=== PATIENT | female | born 1955 | race Caucasian/White ===

== ENCOUNTER 2017-12-26 10:32 | Observation (INO) | payer BC ==
[~2017-12-26] VITALS: Ht 162.6 cm; Wt 87.5 kg
[~2017-12-26 10:32] MED LIST: ACETAMINOPHEN500 MG PO; CIPRO250 MG PO; CIPRO500 MG PO; FLUTICASONE PRO16 GM BOTH NARES; OMEPRAZOLE20 M2 PO; PROMETHAZINE HC25 M1 PO
[2017-12-26] MEDS ORDERED: ZANAFLEX2 MG PO (11:08)
[2017-12-26 11:10] LABS: HEMATOCRIT 35.3 % (36.0-46.0); MCH 32.8 PG (29.0-34.0); MCV 96.4 FL (83-99); PLATELET COUNT 316 K/uL (156-360); RBC DIS.WIDTH-SD 46.3 % (39-53); RED BLOOD COUNT 3.66 M/uL (3.80-5.20); WHITE BLOOD COUNT 6.7 K/uL (4.1-10.2)
[2017-12-26 11:19] LABS: CHLORIDE 105 mEq/L (99-109); POTASSIUM 3.8 mEq/L (3.7-5.4); SODIUM 139 mEq/L (136-147)
[2017-12-26 11:21] LABS: GLUCOSE 139 mg/dL (70-99)
[2017-12-26 11:25] LABS: CREATININE 0.7 mg/dL (0.6-1.3); GFR ESTIMATE (CALCULATED) > 59 mL/min/
[2017-12-26 11:26] LABS: UREA NITROGEN (BUN) 7 mg/dL (9-23)
[2017-12-26 11:32] LABS: TROP-I INTERPRETATION NEGATIVE; TROPONIN-I < 0.01 ng/mL (0.0-0.30)
[2017-12-26 12:15] LABS: APPEARANCE SL.HAZY ((CLEAR)); BILIRUBIN NEGATIVE; BLOOD NEGATIVE; COLOR YELLOW ((YELLOW)); GLUCOSE (STRIP) NEGATIVE; KETONES NEGATIVE; LEUKOCYTES MODERATE; NITRITE NEGATIVE; PROTEIN (STRIP) NEGATIVE; SPECIFIC GRAVITY 1.011 (1.000-1.030); UROBILINOGEN 0.2 MG/DL (0.2-1.0)
[2017-12-26 12:42] LABS: BACTERIA RARE /HPF; EPITHELIAL CELLS 1+ /HPF; HYALINE CASTS 0-5 /LPF; MUCUS TRACE /LPF; RED BLOOD CELLS 0-5 /HPF (0-5); UCUL ADDED? NO; WHITE BLOOD CELLS 0-5 /HPF (0-5)
[2017-12-26] MEDS ORDERED: TYLENOL EXTRA500 MG PO (16:21)
[2017-12-26 18:59] VITALS: BP 136/64
[2017-12-26 20:15] LABS: TROP-I INTERPRETATION NEGATIVE; TROPONIN-I < 0.01 ng/mL (0.0-0.30)
[2017-12-26 23:50] VITALS: BP 103/56
[2017-12-27] VITALS: BP 128/63; BP 135/65; BP 140/65
[2017-12-27 01:20] LABS: TROP-I INTERPRETATION NEGATIVE; TROPONIN-I < 0.01 ng/mL (0.0-0.30)
[2017-12-27 03:58] VITALS: BP 99/52
[2017-12-27 06:27] LABS: HEMATOCRIT 32.9 % (36.0-46.0); HEMOGLOBIN 10.7 G/DL (11.9-15.5); MCH 31.7 PG (29.0-34.0); MCHC 32.5 G/DL (30.0-36.0); MCV 97.3 FL (83-99); PLATELET COUNT 302 K/uL (156-360); RBC DIS.WIDTH-CV 13.5 % (11.8-14.6); RBC DIS.WIDTH-SD 48.3 % (39-53); RED BLOOD COUNT 3.38 M/uL (3.80-5.20); WHITE BLOOD COUNT 6.5 K/uL (4.1-10.2)
[2017-12-27 07:14] LABS: ALBUMIN 3.3 G/DL (3.2-4.8); ALKALINE PHOSPHATASE 60 IU/L (3-129); ALT (GPT) 11 IU/L (3-49); AST (GOT) 12 IU/L (2-34); CHLORIDE 111 MEQ/L (99-109); CREATININE 0.6 MG/DL (0.6-1.3); GFR ESTIMATE (CALCULATED) > 59 mL/min/; POTASSIUM 4.2 MEQ/L (3.7-5.4); SODIUM 144 MEQ/L (136-147); TOTAL BILIRUBIN 0.5 MG/DL (0.0-1.0); TOTAL PROTEIN 5.3 G/DL (6.4-8.3); UREA NITROGEN (BUN) 10 mg/dL (9-23)
[2017-12-27 07:23] LABS: GLUCOSE 84 mg/dL (70-99)
[2017-12-27] MEDS ORDERED: Salonpas 4% Patch TD (11:37)
== END 2017-12-27 13:15 | disposition home or self-care (01) ==
LOC: EME 10:32 → EDOF 15:20 → ENRESERV 15:41 → EDOF 15:59 → ENRESERV 17:32 → 5WEST 18:12 → ENPENDDIS 12-27 → 5WEST 12-27 13:15
PROVIDERS: Emergency Medicine; Internal Medicine
DX: R55 Syncope and collapse (principal); K21.9 Gastro-esophageal reflux disease without esophagitis; E66.9 Obesity, unspecified; M54.9 Dorsalgia, unspecified
CPT/HCPCS: 71045; 71100; 80048; 80053; 81003; 84484; 85027; 93005; 99281; 99285; G0378; J1650; J7030

== ENCOUNTER 2018-01-24 18:30 | Emergency (ER) | payer BC ==
[~2018-01-24] VITALS: Ht 162.6 cm; Wt 86.0 kg
[~2018-01-24 18:30] MED LIST changes: +Salonpas 4% Patch TD; +TYLENOL EXTRA500 MG PO; +ZANAFLEX2 MG PO
[2018-01-24 19:38] LABS: HEMATOCRIT 35.3 % (36.0-46.0); HEMOGLOBIN 11.8 G/DL (11.9-15.5); MCH 32.6 PG (29.0-34.0); MCHC 33.4 G/DL (30.0-36.0); MCV 97.5 FL (83-99); PLATELET COUNT 343 K/uL (156-360); RBC DIS.WIDTH-CV 13.3 % (11.8-14.6); RBC DIS.WIDTH-SD 47.8 % (39-53); RED BLOOD COUNT 3.62 M/uL (3.80-5.20); WHITE BLOOD COUNT 6.2 K/uL (4.1-10.2)
[2018-01-24 19:50] LABS: D-DIMER ELISA < 150.00 ng/mLDDU (<230)
[2018-01-24 19:51] LABS: CHLORIDE 109 mEq/L (99-109); SODIUM 143 mEq/L (136-147)
[2018-01-24 19:52] LABS: GLUCOSE 92 mg/dL (70-99)
[2018-01-24 19:56] LABS: CREATININE 0.7 mg/dL (0.6-1.3); GFR ESTIMATE (CALCULATED) > 59 mL/min/
[2018-01-24 19:57] LABS: UREA NITROGEN (BUN) 12 mg/dL (9-23)
[2018-01-24 20:01] LABS: TROP-I INTERPRETATION NEGATIVE; TROPONIN-I < 0.01 ng/mL (0.0-0.30)
[2018-01-24 22:05] LABS: TROP-I INTERPRETATION NEGATIVE; TROPONIN-I < 0.01 ng/mL (0.0-0.30)
[2018-01-24 23:08] VITALS: BP 124/72
== END 2018-01-24 23:10 | disposition home or self-care (01) ==
LOC: EME 18:30
PROVIDERS: Emergency Medicine
DX: R07.9 Chest pain, unspecified (principal); K21.9 Gastro-esophageal reflux disease without esophagitis; M19.90 Unspecified osteoarthritis, unspecified site
CPT/HCPCS: 71046; 80048; 83880; 84484; 85027; 85379; 93005; 99281; 99284